=== PATIENT | female | born 1935 | race Caucasian/White ===

== ENCOUNTER 2017-03-16 07:29 | Day surgery (SDC) | payer OTHER ==
[2017-03-11 11:18] VITALS: BMI 22.8
[2017-03-16] MEDS ORDERED: ACETAMINOPHEN 500 MG TABLET (FP) PO PRN (08:19)
[2017-03-16] MEDS ORDERED: PROPOFOL 20 ML ONE ×2 (08:38→09:32)
[2017-03-16] MEDS ORDERED: MIDAZOLAM HCL 2 MG/2 ML SINGLE DOSE VIAL ONE (08:38)
[2017-03-16] MEDS ORDERED: ceFAZolin SODIUM 1 GM VIAL ONE (08:58)
[2017-03-16] MEDS ORDERED: ONDANSETRON 4 MG/2 ML VIAL ONE ×2 (08:58→10:34)
[2017-03-16] MEDS ORDERED: DEXAMETHASONE SOD PHOSPHATE 4 MG/1 ML VIAL ONE (08:58)
[2017-03-16] MEDS ORDERED: ONDANSETRON 4 MG/2 ML VIAL IVPUSH PRN (10:56)
[2017-03-16] MEDS ORDERED: LACTATED RINGERS SOLUTION 1,000 ML IV SCH (11:00)
--- NOTE | 2017-03-16 11:33 | OP ---
DATE OF OPERATION: 03/16/2017 PREOPERATIVE DIAGNOSIS: Ectropion, both lower lids. POSTOPERATIVE DIAGNOSIS: Ectropion, both lower lids. PROCEDURE: 1. Lateral tarsal strip, right lower lid, conjunctivoplasty with punctal inversion, right lower lid. 2. Lateral tarsal strip, left lower lid, medial canthal tendon plication, left lower lid, conjunctivoplasty with punctal inversion, left lower lid. SURGEON: Gabriel Conway MD ANESTHESIA: Local with sedation. COMPLICATONS: None. ESTIMATED BLOOD LOSS: 2- 3 mL. OPERATION REPORT: Patient was brought to the operating room, placed on the operating room table. Vital signs monitored by Anesthesia. Tetracaine was placed in both eyes. Lateral canthal lines were marked as well as the curvilinear line over the medial left lower lid extending to the medial canthal tendon. Patient was given intravenous sedation, time-out was performed, and a 50/50 mixture of 2% Xylocaine with 1:100,000 epinephrine, 0.5% Marcaine was injected subcutaneously in the lateral canthus on the left and right sides, and nasally in both lids subconjunctivally, then subcutaneously in the left eye. Massage was applied for hemostasis. Patient was prepped and draped in the usual sterile fashion exposing both eyes. The following procedure was performed bilaterally. Lateral canthal incision was made at the lateral canthus, carried down to the periosteum. Inferior sonja of the lateral canthal tendon was from the orbital rim with sharp dissection. Hemostasis was achieved with the Falls needle. Antibiotic irrigation was used throughout the case. On the right side, the lid was overlapped at the orbital rim, marked with a sterile marking pen, divided to an anterior and posterior lamella. The anterior lamella was excised. Posterior lamella was denuded of epithelium posteriorly and superiorly, and the tarsal strip was then reattached to the orbital rim at the appropriate horizontal position with double-arm 5-0 Prolene reinforced with two 6-0 Vicryl lasso sutures. The lateral canthal angles were reformed with a 5-0 chromic buried to the paul line of the upper and lower lid recreating the lateral canthi. The lid was everted and subpunctal sapna of conjunctival retractors was excised with the Falls needle and to the postorbicularis surface, and this was closed with a double-arm 4-0 chromic grabbing the inferior retractor, superior tarsoconjunctiva, and exiting through the full-thickness eyelid. Inferior to the punctal sapna of conjunctiva and retractor incision inverting the punctum, this was tied on its skin surface. The Prolene was tied. The tarsal strip was secured to the periosteum and the 5-0 chromic subcuticular incision was closed with 5-0 chromic to the skin with interrupted and running 6-0 plain suture. On the left side, a similar lateral canthal tendon plication was performed, lateral tarsal strip, but first a curvilinear incision was made over the medial left lower lid and medial canthal tendon, and the medial tarsal tendinous junction was plicated to the anterior medial canthal tendon with double-arm 5-0 Prolene, which was passed through the tarsal tendinous junction and passed underneath the orbicularis underneath the anterior limb of the medial canthal tendon plicating it, so it could not be moved laterally. After antibiotic irrigation was given, skin was closed with running 6-0 plain, and then, the lateral tarsal strip procedure was performed at the left lateral canthus creating lateral tarsal strip as had been done in the left eye, closing the lateral canthus with a 5-0 chromic buried suture and then reattaching the tarsal strip to the internal surface of the orbital rim with that same double-arm 5-0 Prolene technique reinforced with two 6-0 Vicryl lasso sutures. The excess tarsal strip was closed over the Prolene with a 5-0 chromic, subcuticular tissues were closed with 5-0 Prolene, and the skin was closed with interrupted and running 6-0 plain. Bacitracin ointment was placed on the sutures and in both eyes, and the patient was taken to the recovery room in stable condition. GABRIEL CONWAY M.D. [id number]
[2017-03-16] MEDS ORDERED: ACETAMINOPHEN 500 MG TABLET (FP) ONE (11:47)
[2017-03-16 13:40] VITALS: TEMP 98
[2017-03-16 13:52] VITALS: BP 137/68; PULSE 70
== END 2017-03-16 12:45 | disposition home or self-care (01) ==
LOC: FASU 07:29
PROVIDERS: ATTEND Ophthalmology
PROC: 08SQ0ZZ Reposition Right Lower Eyelid, Open Approach (ICD-10-PCS; 2017-03-16)
PROC: 08SR0ZZ Reposition Left Lower Eyelid, Open Approach (ICD-10-PCS; principal; 2017-03-16 09:08)
DX: H02.102 Unspecified ectropion of right lower eyelid (principal); H02.105 Unspecified ectropion of left lower eyelid
CPT/HCPCS: 94760